=== PATIENT | female | born 1980 | race Caucasian/White ===

== ENCOUNTER 2017-03-15 15:46 | Emergency (ER) | payer OTHER ==
[~2017-03-15] VITALS: Ht 160 cm; Wt 62.5 kg
[2017-03-15 16:02] VITALS: BP 98/67
[2017-03-15] MEDS ORDERED: HYDROcodone/APAP 5/325 TABLET ONE (16:44)
== END 2017-03-15 17:18 | disposition home or self-care (01) ==
LOC: ED 17:14
DX: G62.9 Polyneuropathy, unspecified (principal); M54.9 Dorsalgia, unspecified; F17.210 Nicotine dependence, cigarettes, uncomplicated; G89.29 Other chronic pain
CPT/HCPCS: 82962; 99283